=== PATIENT | male | born 1965 | race Caucasian/White ===

== ENCOUNTER 2021-11-15 12:40 | Emergency (ER) | payer BC ==
[~2021-11-15] VITALS: Ht 180.3 cm; Wt 116.8 kg
[2021-11-15] MEDS ORDERED: CHLORTHALIDONE 25 MG TAB PO ONE (13:30)
[2021-11-15 13:31] LABS: BASO % 0.3 % (0.0-1.0); EOS % 0.5 % (0.0-3.0); HEMATOCRIT 50.4 % (42.0-52.0); HEMOGLOBIN 15.8 g/dl (13.5-17.5); LYMPH # 1.2 10^3/uL (1.5-5.0); MEAN CORPUSCULAR HGB CONC 31.3 g/dl (32.0-36.5); MEAN CORPUSCULAR VOLUME 92.5 fl (80.0-96.0); MONO # 0.4 10^3/uL (0.0-0.8); MONO % 5.8 % (2.0-8.0); NEUTROPHILS # 4.5 10^3/uL (1.5-8.5); NEUTROPHILS % 73.1 % (36.0-66.0); PLATELET COUNT, AUTOMATED 161 10^3/uL (150-450); RED BLOOD COUNT 5.45 10^6/uL (4.30-6.10); WHITE BLOOD COUNT 6.2 10^3/uL (4.0-10.0)
[2021-11-15 14:11] LABS: BLOOD UREA NITROGEN 15 MG/DL (7-18); CALCIUM LEVEL 8.6 MG/DL (8.5-10.1); CARBON DIOXIDE LEVEL 27 MEQ/L (21-32); CHLORIDE LEVEL 112 MEQ/L (98-107); CREATININE FOR GFR 0.78 MG/DL (0.70-1.30); FREE T4 0.93 NG/DL (0.76-1.46); GLOMERULAR FILTRATION RATE > 60.0 (>56); GLUCOSE, FASTING 109 MG/DL (70-100); POTASSIUM SERUM 4.4 MEQ/L (3.5-5.1); SODIUM LEVEL 141 MEQ/L (136-145)
[2021-11-15] MEDS ORDERED: CHLO125TA PO (14:49)
[2021-11-15 15:10] VITALS: BP 165/86
== END 2021-11-15 15:20 | disposition home or self-care (01) ==
LOC: M ED 12:40 → EDBD 12:40 → M ED 15:20
DX: I10 Essential (primary) hypertension (principal)

== ENCOUNTER → 2022-03-19 | Outpatient (CLI) | payer BC ==
[~2022-03-19] MED LIST: CHLO125TA PO; LISI5TAB11 PO
== END ==
LOC: M LABSMTC 11:13
PROVIDERS: ATTEND Anesthesiology
DX: Z01.818 Encounter for other preprocedural examination (principal); Z20.822 Contact with and (suspected) exposure to COVID-19

== ENCOUNTER 2022-03-22 10:11 | Day surgery (SDC) | payer BC ==
[~2022-03-22] VITALS: Ht 175.3 cm; Wt 101.2 kg
[~2022-03-22 10:11] MED LIST changes: +NS 1,000 ML IV ONE
[2022-03-22] MEDS ORDERED: LIDOCAINE 2% 100MG/5ML SDV (FOR ANES.) As Ordered ONE (11:47)
[2022-03-22] MEDS ORDERED: propofoL 200 MG/20 ML VIAL As Ordered ONE (11:47)
[2022-03-22 12:31] VITALS: BP 133/78
== END 2022-03-22 12:52 | disposition home or self-care (01) ==
LOC: M OPP 10:11
PROVIDERS: ATTEND Surgery
DX: Z12.11 Encounter for screening for malignant neoplasm of colon (principal); K64.0 First degree hemorrhoids; Z79.899 Other long term (current) drug therapy; I10 Essential (primary) hypertension